=== PATIENT | female | born 1970 | race Caucasian/White ===

== ENCOUNTER 2017-04-25 23:59 | Emergency (ER) | payer OTHER ==
[~2017-04-25] VITALS: Ht 157.4 cm; Wt 68.0 kg
[2017-04-26] MEDS ORDERED: LEVOTHYROXIN0.125 MG PO (00:10)
[2017-04-26] MEDS ORDERED: AMOXICILLIN500 M2 PO (00:29)
== END 2017-04-26 00:48 | disposition home or self-care (01) ==
LOC: ED 23:59
DX: K04.7 Periapical abscess without sinus (principal); F17.200 Nicotine dependence, unspecified, uncomplicated; Z88.1 Allergy status to other antibiotic agents; Z88.2 Allergy status to sulfonamides; Z88.6 Allergy status to analgesic agent